=== PATIENT | male | born 1960 | race African-American/Black ===

== ENCOUNTER 2023-04-17 05:59 | Emergency (ER) | payer MEDICAID ==
[~2023-04-17] VITALS: Ht 177.8 cm; Wt 77.0 kg
[~2023-04-17 05:59] MED LIST: FURO-151 MT; MIDO5TAB4 PO; POTA-204 PO
[2023-04-17 06:04] VITALS: O2SAT 98
[2023-04-17] MEDS ORDERED: ACETAMINOPHEN 325MG TABLET PO NR (06:30)
[2023-04-17 06:40] LABS: HEMATOCRIT. 30.4 % (42.0-52.0); HEMOGLOBIN. 9.2 g/dL (14.0-18.0); MEAN CORPUSCULAR HEMOGLOBIN 21.8 pg (28.0-32.0); MEAN CORPUSCULAR HGB CONC 30.2 g/dL (31.0-37.0); MEAN CORPUSCULAR VOLUME 72.3 fL (80.0-94.0); MEAN PLATELET VOLUME 7.4 fl (7.4-10.4); PLATELET 227 x1000/uL (130-400); RED BLOOD CELL COUNT 4.21 mill/uL (4.7-6.1); RED CELL DISTRIBUTION WIDTH 22.4 % (11.6-14.6); WHITE BLOOD COUNT 3.4 x1000/uL (4.5-11.0)
[2023-04-17 07:05] LABS: DIFFERENTIAL COMMENT 1
[2023-04-17 07:10] LABS: CHLORIDE 110 mEq/L (98-107); INDEX HEMOLYSI 1 (1-3); INDEX ICTERIC 1 (1-4); INDEX LIPEMIC 1 (1-3); POTASSIUM 3.7 mEq/L (3.5-5.1); SODIUM 140 mEq/L (136-145)
[2023-04-17 07:18] LABS: ACETAMINOPHEN <2 ug/mL ug/mL (10-30); CALCIUM 8.4 mg/dL (8.5-10.1); CARBON DIOXIDE 22 mEq/L (21-32); CREATININE 0.7 mg/dL (0.6-1.3); ETHANOL BLOOD 47 mg/dL (<10); GLUCOSE 88 mg/dL (70-105); UREA NITROGEN BLOOD 11 mg/dL (7-21)
[2023-04-17 07:19] LABS: CREATINE KINASE 103 IU/L (39-308)
[2023-04-17 07:50] VITALS: BP 118/68; PULSE 98; RESP 20; TEMP 98.6
[2023-04-17 09:48] LABS: ANISOCYTOSIS 2+; MICROCYTOSIS 2+; NUCLEATED RED BLOOD CELLS 1 /100 WBC; PLATELET ESTIMATE NORMAL
[2023-04-17 09:49] LABS: TARGET CELLS FEW
== END 2023-04-17 09:40 | disposition home or self-care (01) ==
LOC: ER 05:59
DX: R52 Pain, unspecified (principal); Z59.00 Homelessness unspecified; I50.9 Heart failure, unspecified
CPT/HCPCS: 80048; 80307; 80329; 80320; 82550; 85025; 36415; 99284; Z7610 ×2; G0480

== ENCOUNTER 2023-09-08 19:51 | Inpatient (IN) | payer MEDICAID, OTHER ==
[~2023-09-08] VITALS: Ht 167.6 cm; Wt 79.4 kg
[~2023-09-08 19:51] MED LIST changes: +QUET25TA PO
[2023-09-08 21:00] LABS: HEMOGLOBIN. 9.9 g/dL (14.0-18.0); MEAN CORPUSCULAR HEMOGLOBIN 21.1 pg (28.0-32.0); MEAN CORPUSCULAR HGB CONC 30.8 g/dL (31.0-37.0); MEAN CORPUSCULAR VOLUME 68.4 fL (80.0-94.0); MEAN PLATELET VOLUME 8.3 fl (7.4-10.4); PLATELET 175 x1000/uL (130-400); RED BLOOD CELL COUNT 4.68 mill/uL (4.7-6.1); RED CELL DISTRIBUTION WIDTH 24.4 % (11.6-14.6)
[2023-09-08 21:09] LABS: DIFFERENTIAL COMMENT 1
[2023-09-08 21:11] LABS: INR 0.9; PROTHROMBIN TIME 10.6 sec (9.6-11.0)
[2023-09-08 21:21] LABS: ALANINE AMINOTRANSFERASE 15 IU/L (10-49); ALBUMIN 4.4 g/dL (3.2-4.8); ASPARTATE AMINOTRANSFERASE 36 IU/L (<34); BILIRUBIN TOTAL 0.7 mg/dL (0.1-1.0); CARBON DIOXIDE 21 mEq/L (21-32); CHLORIDE 102 mEq/L (98-107); CREATININE 0.9 mg/dL (0.6-1.3); GLUCOSE 71 mg/dL (70-105); POTASSIUM 3.7 mEq/L (3.5-5.1); PROTEIN TOTAL 7.8 g/dL (6.0-8.3); SODIUM 137 mEq/L (136-145); TROPONIN I HIGH SENSITIVITY 36 ng/L (3.0-53); UREA NITROGEN BLOOD 15 mg/dL (9-23)
[2023-09-08 21:38] LABS: MICROCYTOSIS 3+; PLATELET ESTIMATE NORMAL
[2023-09-08 21:39] LABS: ANISOCYTOSIS 2+; HYPOCHROMASIA 2+
[2023-09-08] MEDS: FUROSEMIDE 40MG/4ML VIAL IVP ONE (22:30)
[2023-09-09 02:05] LABS: CLARITY URINE CLEAR (CLEAR); COLOR URINE YELLOW (YELLOW); GLUCOSE URINE NEGATIVE (NEGATIVE); KETONES URINE NEGATIVE (NEGATIVE); LEUKOCYTE ESTERASE URINE NEGATIVE (NEGATIVE); NITRITE URINE NEGATIVE (NEGATIVE); OCCULT BLOOD URINE NEGATIVE (NEGATIVE); PH URINE 6.5 (4.5-8.0); PROTEIN URINE NEGATIVE (NEGATIVE); SPECIFIC GRAVITY URINE 1.005 (1.005-1.030); UROBILINOGEN URINE 0.2 E.U./dL (0.2-1.0)
[2023-09-09 05:49] VITALS: BP 115/78; PULSE 95; RESP 19; TEMP 98.6
[2023-09-09 08:00] VITALS: BP 103/70; PULSE 93; RESP 16; TEMP 99
[2023-09-09] MEDS ORDERED: HYDROCODONE/ACETAMINOPHEN 5/325MG TABLET PO PRN (09:45)
[2023-09-09] MEDS ORDERED: IPRATROPIUM/ALBUTEROL 0.5-3(2.5)MG/3ML NEB HHN PRN (09:45)
[2023-09-09] MEDS ORDERED: NALOXONE HCL 0.4MG/ML VIAL IV PRN (10:00)
[2023-09-09] MEDS: DEXT 5%/0.45% NACL 1000ML 1,000 ML IV SCH (10:46)
[2023-09-09 12:00] VITALS: BP 98/64; PULSE 91; RESP 20; TEMP 98.6
[2023-09-09 16:00] VITALS: BP 100/65; PULSE 97; RESP 22; TEMP 98.6
[2023-09-09 18:35] VITALS: BP 93/66; PULSE 85; TEMP 98.6; O2SAT 94
[2023-09-10 07:51] LABS: ALANINE AMINOTRANSFERASE 21 IU/L (10-49); ALBUMIN 3.6 g/dL (3.2-4.8); ASPARTATE AMINOTRANSFERASE 26 IU/L (<34); BILIRUBIN TOTAL 0.6 mg/dL (0.1-1.0); CALCIUM 8.8 mg/dL (8.7-10.4); CARBON DIOXIDE 25 mEq/L (21-32); CHLORIDE 109 mEq/L (98-107); GLUCOSE 141 mg/dL (70-105); POTASSIUM 3.9 mEq/L (3.5-5.1); PROTEIN TOTAL 6.5 g/dL (6.0-8.3); SODIUM 142 mEq/L (136-145); UREA NITROGEN BLOOD 21 mg/dL (9-23)
[2023-09-10 08:49] LABS: CREATININE 2.3 mg/dL (0.6-1.3)
== END 2023-09-09 19:37 | disposition short-term general hospital (02) | DRG 140 ==
LOC: ER 19:51 → EDBEDREQ 09-09 01:57 → 3WST 09-09 05:29
PROVIDERS: ADMIT Internal Medicine; ATTEND Internal Medicine
DX: J44.1 Chronic obstructive pulmonary disease with (acute) exacerbation (principal); I11.0 Hypertensive heart disease with heart failure; I50.9 Heart failure, unspecified; D64.9 Anemia, unspecified; Z20.822 Contact with and (suspected) exposure to COVID-19; K40.90 Unilateral inguinal hernia, without obstruction or gangrene, not specified as recurrent; F10.229 Alcohol dependence with intoxication, unspecified; Z86.73 Personal history of transient ischemic attack (TIA), and cerebral infarction without residual deficits; Z91.148 Patient's other noncompliance with medication regimen for other reason
CPT/HCPCS: 36415; 71045; 80053; 80320; 81003; 82962; 83880; 84484; 85025; 87426; 93005; 99285; G0480

== ENCOUNTER 2024-07-07 03:58 | Emergency (ER) | payer OTHER ==
[~2024-07-07] VITALS: Ht 177.8 cm; Wt 78.0 kg
[~2024-07-07 03:58] MED LIST changes: +ALBU18HF2 IH
[2024-07-07 04:13] VITALS: O2SAT 99
[2024-07-07 05:30] LABS: BASOPHILS % 1.7 % (0.0-2.0); DIFFERENTIAL COMMENT 0; EOSINOPHILS % 0.5 % (0.0-5.0); HEMATOCRIT. 32.9 % (42.0-52.0); HEMOGLOBIN. 10.6 g/dL (14.0-18.0); LYMPHOCYTES % 24.4 % (20.0-50.0); MEAN CORPUSCULAR HEMOGLOBIN 25.4 pg (28.0-32.0); MEAN CORPUSCULAR HGB CONC 32.1 g/dL (31.0-37.0); MEAN CORPUSCULAR VOLUME 79.2 fL (80.0-94.0); MONOCYTES % 14.2 % (2.0-8.0); NEUTROPHILS % 59.2 % (40.0-76.0); PLATELET 174 x1000/uL (130-400); RED BLOOD CELL COUNT 4.16 mill/uL (4.7-6.1); RED CELL DISTRIBUTION WIDTH 21.3 % (11.6-14.6)
[2024-07-07 05:34] LABS: CHLORIDE 109 mEq/L (98-107); POTASSIUM 4.5 mEq/L (3.5-5.1); SODIUM 140 mEq/L (136-145)
[2024-07-07 05:35] LABS: CARBON DIOXIDE 19 mEq/L (21-32)
[2024-07-07 05:36] LABS: CALCIUM 9.1 mg/dL (8.7-10.4)
[2024-07-07 05:41] LABS: CREATININE 0.9 mg/dL (0.6-1.3); ETHANOL BLOOD 16 mg/dL (<10); GLUCOSE 79 mg/dL (70-105); UREA NITROGEN BLOOD 16 mg/dL (9-23)
[2024-07-07 05:42] LABS: TROPONIN I HIGH SENSITIVITY 24 ng/L (3.0-53)
[2024-07-07 06:27] LABS: *AMPHETAMINES SCREEN URINE NEGATIVE (NEGATIVE); *BARBITURATES SCREEN URINE NEGATIVE (NEGATIVE); *BENZODIAZEPINES SCREEN URINE NEGATIVE (NEGATIVE); *COCAINE SCREEN URINE PRESUMPTIVE POSITIVE (NEGATIVE); CANNABINOID URINE SCREEN NEGATIVE (NEGATIVE); ECSTASY MDMA SCREEN URINE NEGATIVE (NEGATIVE); METHADONE URINE SCREEN NEGATIVE (NEGATIVE); OPIATES URINE SCREEN NEGATIVE (NEGATIVE); PHENCYCLIDINE URINE SCREEN NEGATIVE (NEGATIVE)
[2024-07-07] MEDS: FUROSEMIDE 40MG/4ML VIAL IVP ONE (08:15)
[2024-07-07 08:27] LABS: TROPONIN I HIGH SENSITIVITY 28 ng/L (3.0-53)
[2024-07-07 11:24] VITALS: BP 103/65; PULSE 82; RESP 16; TEMP 36.7; O2SAT 99
== END 2024-07-07 12:11 | disposition admitted as inpatient to this hospital (09) ==
LOC: ER 03:58 → CANBEDREQ 07:52 → ER 12:11
DX: I50.9 Heart failure, unspecified (principal); R10.84 Generalized abdominal pain; I11.0 Hypertensive heart disease with heart failure; I25.2 Old myocardial infarction; F17.200 Nicotine dependence, unspecified, uncomplicated; Z79.899 Other long term (current) drug therapy
CPT/HCPCS: 80305; 80048; 80320; 83880; 85025; 84484; 36415; 71045; 74176; 93005; 96374; 99285; J1940; Z7610; G0480

== ENCOUNTER 2024-08-01 05:25 | Emergency (ER) | payer OTHER ==
[~2024-08-01] VITALS: Ht 180.3 cm; Wt 73.0 kg
[2024-08-01 05:30] VITALS: O2SAT 96
[2024-08-01] MEDS: LEVETIRACETAM 1000MG PREMIX 100 ML IV ONE (06:02)
[2024-08-01 06:08] LABS: HEMATOCRIT. 33.7 % (42.0-52.0); MEAN CORPUSCULAR HEMOGLOBIN 26.4 pg (28.0-32.0); MEAN CORPUSCULAR HGB CONC 32.7 g/dL (31.0-37.0); MEAN CORPUSCULAR VOLUME 80.7 fL (80.0-94.0); MEAN PLATELET VOLUME 7.9 fl (7.4-10.4); PLATELET 165 x1000/uL (130-400); RED BLOOD CELL COUNT 4.18 mill/uL (4.7-6.1); RED CELL DISTRIBUTION WIDTH 22.5 % (11.6-14.6); WHITE BLOOD COUNT 2.7 x1000/uL (4.5-11.0)
[2024-08-01 06:12] LABS: CHLORIDE 110 mEq/L (98-107); POTASSIUM 5.9 mEq/L (3.5-5.1)
[2024-08-01 06:13] LABS: CARBON DIOXIDE 20 mEq/L (21-32); SODIUM 143 mEq/L (136-145)
[2024-08-01 06:14] LABS: CALCIUM 8.6 mg/dL (8.7-10.4)
[2024-08-01 06:18] LABS: CREATININE 0.9 mg/dL (0.6-1.3)
[2024-08-01 06:19] LABS: ETHANOL BLOOD 104 mg/dL (<10); GLUCOSE 80 mg/dL (70-105); UREA NITROGEN BLOOD 14 mg/dL (9-23)
[2024-08-01 06:44] LABS: DIFFERENTIAL COMMENT 1
[2024-08-01] MEDS: LORAZEPAM 2MG/ML INJ IV ONE (07:42)
[2024-08-01 09:46] LABS: ANISOCYTOSIS 3+; NUCLEATED RED BLOOD CELLS 1 /100 WBC; PLATELET ESTIMATE NORMAL
[2024-08-01 12:00] VITALS: BP 135/84; PULSE 74; RESP 18; TEMP 36.7; O2SAT 98
== END 2024-08-01 12:15 | disposition short-term general hospital (02) ==
LOC: ER 05:25 → CANBEDREQ 10:36 → ER 12:15
DX: G40.909 Epilepsy, unspecified, not intractable, without status epilepticus (principal); I11.0 Hypertensive heart disease with heart failure; I50.9 Heart failure, unspecified; Z79.899 Other long term (current) drug therapy; Z86.73 Personal history of transient ischemic attack (TIA), and cerebral infarction without residual deficits; Z91.148 Patient's other noncompliance with medication regimen for other reason
CPT/HCPCS: 80048; 80320; 85025; 36415; 70450; 96365; 99285; J1953; Z7610 ×5; A4606; G0480